=== PATIENT | female | born 1940 | race Caucasian/White ===

== ENCOUNTER 2018-10-27 11:09 | Inpatient (IN) | payer OTHER ==
--- NOTE | 2018-10-27 06:35 | PDHPUP ---
History & Physical Update H&P update statement: This history and physical update is based on an assessment of the patient which was completed after admission or registration (within 24 hours), but prior to the surgery/procedure. H&P update: H&P reviewed & patient examined, no change in patient's condition since H&P completed
[2018-10-27] MEDS ORDERED: GABAPENTIN 300 MG CAP PO ONE (11:30)
[2018-10-27] MEDS ORDERED: ACETAMINOPHEN 500 MG TAB PO ONE (11:30)
[2018-10-27] MEDS ORDERED: ceFAZolin 2 GM/DEXTROSE 100 ML IV ONE (11:30)
[2018-10-27] MEDS ORDERED: LIDOCAINE 1% 2 ML INJ ID PRN (11:32)
[2018-10-27] MEDS ORDERED: LR 1,000 ML IV ONE (11:32)
--- NOTE | 2018-10-27 12:03 | PDANEPAE ---
ANE History of Present Illness cervical stenosis, cervical radiculopathy, spondylosis ANE Past Medical History - Cardiovascular History Hx Hypertension: Yes Hx Arrhythmias: No Hx Chest Pain: No Hx Coronary Artery / Peripheral Vascular Disease: No Hx CHF / Valvular Disease: No Hx Palpitations: No Cardiovascular History Comment: pcp monitors bp medications - Pulmonary History Hx COPD: No Hx Asthma/Reactive Airway Disease: No Hx Recent Upper Respiratory Infection: No Hx Oxygen in Use at Home: No Hx Sleep Apnea: No Sleep Apnea Screening Result - Last Documented: Negative - Neurologic History Hx Cerebrovascular Accident: No Hx Seizures: Yes Hx Dementia: No Neurologic History Comment: hx of seizures, hasn't had in over 20 yrs - Endocrine History Hx Diabetes: No Hypothyroid: No Hyperthyroid: No Obesity: no - Renal History Hx Renal Disorders: Yes Renal History Comment: overactive bladder - Liver History Hx Hepatic Disorders: No - Neurological & Psychiatric Hx Hx Neurological and Psychiatric Disorders: No - Cancer History Hx Cancer: Yes Cancer History Comment: breast ca with bilateral mastectomy and reconstruction. uterine ca with radical hysterectomy - Congenital Disorder History Hx Congenital Disorders: No - GI History Hx Gastrointestinal Disorders: No - Other Health History Other Health History: dentures/ partial plate - Chronic Pain History Chronic Pain: No - Surgical History Prior Surgeries: "a lot of surgeries". bilateral mastectomy with reconstruction. hysterectomy ANE Review of Systems Review of systems is: negative Review of Systems: - Exercise capacity Exercise capacity: >=4 METS METS (RN): 4 METS ANE Patient History - Allergies Allergies/Adverse Reactions: No Known Allergies Allergy (Verified 10/27/18 12:04) - Home Medications Home medications: home medication list seen and reviewed Home Medications: Atenolol [Tenormin 25 mg (*)] 6.25 mg PO DAILY 10/18/18 [Last Taken 10/27/18 09: 00] Calcium Carbonate [Oyster Shell Calcium 500 mg (*)] 500 mg PO BID 10/18/18 [ Last Taken 10/20/18] Citalopram [CeleXA] 10 mg PO DAILY 10/18/18 [Last Taken 10/27/18 09:00] Diclofenac Sodium [Voltaren 75 MG (*)] 75 mg PO BID 10/18/18 [Last Taken 09:00] Estradiol [Estradiol 1 MG (*)] 2 mg PO DAILY 10/18/18 [Last Taken 10/27/18 09:00 ] Gabapentin [Neurontin 100 MG (*)] 100 mg PO DAILY 10/18/18 [Last Taken 10/27/18 09:00] Hydrochlorothiazide [HCTZ (*)] 12.5 mg PO DAILY 10/18/18 [Last Taken 10/27/18 09 :00] Hydrocodone/APAP 5/325 [[place] 5/325 (*)] 1 each PO DAILY PRN 10/18/18 [Last Taken 10/20/18] Losartan Potassium [Cozaar 50 mg (*)] 50 mg PO DAILY 10/18/18 [Last Taken 09:00] Oxybutynin Chloride [Ditropan Xl] 10 mg PO DAILY 10/18/18 [Last Taken 10/27/18 09:00] Potassium Cl [Klor-Con] 10 meq PO DAILY 10/18/18 [Last Taken 10/27/18 09:00] amLODIPine BESYLATE [Norvasc 5 mg (*)] 5 mg PO DAILY 10/18/18 [Last Taken 09:00] - NPO status NPO Status: no food or drink >8 hours - Anes Hx Anes Hx: no prior problems - Smoking Hx Smoking Status: Former smoker - Family Anes Hx Family Hx Anesthesia Complications: none ANE Labs/Vital Signs - Vital Signs Height: 160.02 cm Weight: 56.699 kg ANE Physical Exam - Airway Neck exam: FROM Mallampati Score: Class 2 Mouth exam: dentures - Pulmonary Pulmonary: no respiratory distress, clear to auscultation - Cardiovascular Cardiovascular: regular rate and rhythym - ASA Status ASA Status: II ANE Anesthesia Plan Anesthesia Plan: general endotracheal anesthesia
[2018-10-27] MEDS ORDERED: BUPIVACAINE/EPI 0.25% 30 ML SDV ONE (12:20)
[2018-10-27] MEDS ORDERED: CHLORHEXIDINE GLUC HIBICLENS 118 ML BTL TP ONE (12:20)
[2018-10-27] MEDS ORDERED: THROMBIN (BOVINE) 5,000 UNIT VIAL TP ONE (12:20)
[2018-10-27] MEDS ORDERED: BACITRACIN 50,000 UNITS/10 ML SYR IRR ONE (12:20)
[2018-10-27] MEDS ORDERED: GABAPENTIN 400 MG CAP PO ONE (12:30)
[2018-10-27] MEDS ORDERED: PROPOFOL/EMULSION 500 MG/50 ML BOTTLE IV ONE ×3 (13:26→16:32)
[2018-10-27] MEDS ORDERED: PROPOFOL 200 MG/20 ML VIAL ONE (13:26)
[2018-10-27] MEDS ORDERED: LIDOCAINE 2% 5 ML SDV ONE (13:28)
[2018-10-27] MEDS ORDERED: ROCURONIUM 50 MG/5 ML VIAL ONE (13:28)
[2018-10-27] MEDS ORDERED: HYDROmorphONE/DILAUDID 1 MG/ML INJ IVP PRN ×2 (14:10→15:27)
[2018-10-27] MEDS ORDERED: ONDANSETRON DISINTEGRATING 4 MG TAB PO PRN (14:10)
[2018-10-27] MEDS ORDERED: LACTULOSE 20 GM/30 ML UDCUP PO PRN (14:10)
[2018-10-27] MEDS ORDERED: NALOXONE HCL 0.4 MG/ML INJ IVP PRN ×2 (14:10→15:27)
[2018-10-27] MEDS ORDERED: BISACODYL 10 MG SUPP PR PRN (14:10)
[2018-10-27] MEDS ORDERED: METHOCARBAMOL 750 MG TAB PO PRN (14:10)
[2018-10-27] MEDS ORDERED: MAGNESIUM HYDROXIDE 30 ML UDCUP PO PRN (14:10)
[2018-10-27] MEDS ORDERED: diphenhydrAMINE 25 MG CAP PO PRN (14:10)
[2018-10-27] MEDS ORDERED: ONDANSETRON 4 MG/2 ML VIAL IVP PRN ×2 (14:10→15:27)
[2018-10-27] MEDS ORDERED: morphINE PCA 30 MG/30 ML PCA IV PRN (14:10)
[2018-10-27] MEDS ORDERED: fentaNYL 100 MCG/2 ML INJ ONE ×2 (14:15→17:31)
[2018-10-27] MEDS ORDERED: NS 1,000 ML IV SCH (14:15)
[2018-10-27] MEDS ORDERED: ONDANSETRON 4 MG/2 ML VIAL ONE (14:59)
[2018-10-27] MEDS ORDERED: DEXAMETHASONE 4 MG/ML VIAL ONE ×2 (14:59)
--- NOTE | 2018-10-27 15:20 | PDMN ---
Medical Necessity Medical necessity: Pt meets IP criteria per PA & MCG S-320 Cervical Fusion, Anterior; est los >2 mn s/p C4-C6 ACDF; comorbid advanced age, recurrent cystitis, cervical/breast cancer, pelvic mass & stroke; per H&P & order 10/27/18
[2018-10-27] MEDS ORDERED: METOCLOPRAMIDE 10 MG/2 ML VIAL IVP PRN (15:27)
[2018-10-27] MEDS ORDERED: MEPERIDINE 25 MG/0.5 ML AMP IVP PRN (15:27)
[2018-10-27] MEDS ORDERED: ALBUTEROL 3 ML DEYVIAL IH PRN (15:27)
[2018-10-27] MEDS ORDERED: LR 500 ML IV PRN (15:27)
[2018-10-27] MEDS ORDERED: PROMETHAZINE HCL 25 MG/ML INJ IVP PRN (15:27)
[2018-10-27] MEDS ORDERED: PHENYLEPHRINE HCL 100 MCG/ML SYR IVP PRN (15:27)
[2018-10-27] MEDS ORDERED: LABETALOL HCL 5 MG/ML 20 ML MDV IVP PRN (15:27)
[2018-10-27] MEDS ORDERED: fentaNYL 100 MCG/2 ML INJ IVP PRN (15:27)
[2018-10-27] MEDS ORDERED: DEXAMETHASONE 4 MG/ML VIAL IVP PRN (15:27)
[2018-10-27] MEDS ORDERED: oxyCODONE IR 5 MG TAB PO PRN (15:27)
--- NOTE | 2018-10-27 17:23 | POSTOPPROG ---
Post Op Note Date of Operation: 10/27/18 Surgeon: Maria L Teresa Medical Reception Specialist: MYESHA Frye Anesthesiologist: MD Tremayne Anesthesia: GET(General Endotracheal), Local (Specify) Pre-op Diagnosis: Cervical stenosis C4-C6 Post-op Diagnosis: Cervical stenosis C4-C6 Indication: stenosis/MRI findings Procedure: ACDF C4-C6 Findings: see op report Inf/Abcess present in the surg proc area at time of surgery?: No Depth: Deep Incisional (Fascial) EBL: 100-500 Total fluids administered: see anesthesia record Complications: none Bowel Protocol: Yes Clean Closure Performed: Yes
--- NOTE | 2018-10-27 17:28 | SOAPPROG ---
SOAP Progress Note Assessment/Plan: Post Op Visit: S: Awake and alert, NAD. Pt with expected neck pain O: AFVSS/PERRLA/EOMI no droop CN 2-12 grossly intact +lt touch 5/5 BUE/BLE = CDI Neck soft and supple A/P: 78 yo female that is s/p ACDF C4-C6 -collar at all times -PT/OT/ST ordered -orders in place -post op xrays pending in am -pt seen by Dr Teresa as well -call with any questions or concerns Objective: Vital Signs Temp Pulse Resp BP Pulse Ox 36.8 C 52 L 16 151/72 H 96 10/27/18 14:00 10/27/18 14:00 10/27/18 14:00 10/27/18 14:00 10/27/18 14:00 ICD10 Worksheet Patient Problems: Problems Problem Status Onset Arthrodesis status Acute Cervical spinal stenosis Acute - ICD10 Problem Qualifiers (1) Cervical spinal stenosis (2) Arthrodesis status
--- NOTE | 2018-10-27 17:34 | POSTANESTH ---
Post Anesthetic Evaluation Cardiovascular Status: Normal, Stable Respiratory Status: Normal, Stable Level of Consciousness/Mental Status: Can Participate in Eval Pain Control: Adequate, Prn Tx Ordered Nausea/Vomiting Control: Adequate, Prn Tx Ordered Complications Possibly Related to Anesthesia: None Noted
--- NOTE | 2018-10-27 18:04 | GOP ---
[f rep st] OPERATIVE REPORT DATE OF OPERATION: 10/27/2018 SURGEON: Hadley Teresa MD NEUROSURGEON: Hadley Teresa MD. PIERCING MILL OPERATOR: Andrea Frye PA-C. PREOPERATIVE DIAGNOSIS: Cervical spondylosis with severe cervical disk degenerative disease, C3-4, 4 -5, 5-6 and 6-7; cervical spondylolisthesis, C3-4; right cervical radiculopathy, C4-5, C5-6. POSTOPERATIVE DIAGNOSIS: Cervical spondylosis with severe cervical disk degenerative disease, C3-4, 4-5, 5-6 and 6-7; cervical spondylolisthesis, C3-4; right cervical radiculopathy, C4-5, C5-6. PROCEDURE PERFORMED: Anterior cervical diskectomy with arthrodesis, decompression, C4-5, C5-6 (51028 , 89683); anterior cervical instrumentation, C4, C5, C6 (20124); same-incision bone graft harvest, mi croscope, placement of biomechanical intervertebral device, C4-5, C5-6 (03886 x2). FINDINGS: ESTIMATED BLOOD LOSS: 200 mL. INDICATIONS: The patient is an 78-year-old with pain radiating down the right arm to the right shoul victor m and MRI demonstrated severe cervical degenerative disease at C3-4, 5-5, 5-6, 6-7. She had nerve compression on the right at C4-5, 5-6. She had a spondylolisthesis at C3-4, but no significant alix inal stenosis or nothing in my view that was causing symptoms. She also had severe degenerative rodriguez ges at C6-7, but I did not think this level was symptomatic. I suggested a 2 level ACDF. Her MRI wa s done last December. I had seen her in May, and then we preop'd her this past month, and upon revi crawley her films, she had no change in her symptoms, but because the MRI was so old, we actually had h er set up to get a preop MRI today prior to surgery and she declined this. She did not really want t o go sit in the tube while waiting for surgery. She understood there is a slight chance there could be a change in her MRI findings compared to last December, but she wanted to accept this risk. Her clini mayito symptoms were the same and she was ready to proceed. I thought the likelihood of there being a c hange is low and this is why we set up the MRI for the same day here at the hospital, but again, she refused it. The risk of esophageal injury, carotid injury, recurrent laryngeal nerve injury, pseudoa rthrosis, adjacent segment disease, future spine surgery, particularly at the C3-4 level or posterior stabilization procedure was discussed. She knew there was risk of hoarseness, dysphagia and possibl y continued symptoms, and she did want to proceed despite these risks. DESCRIPTION OF PROCEDURE: The patient was taken to the operating room and placed in a supine positio n. General anesthesia was begun. A midline shoulder roll was placed. Her head was kept in neutral occiput and gently extended. She was sterilely prepped and draped in the usual fashion. We made a t ransverse incision on the left side of the neck. The subcutaneous tissue was dissected using Bovie c autery down through the platysma. We used a combination of sharp and blunt dissection medial to the sternocleidomastoid and lateral to the strap muscles down the prevertebral space. The dissection was very straightforward. We shot a localizing x-ray, dissected the longus colli muscles off the spine at C4-5, 5-6. There was very large ventral osteophyte at C3-4. This was left alone. We removed the large osteophytes at C4-5, 5-6, placed a self-retaining retractor, put distraction pins at C4-5 and distracted there. Under the microscope, we removed the C4-5 disk and the cartilaginous endplates. W e opened the posterior and longitudinal ligament and decompressed the neural foramen on each side. T here was very severe foraminal stenosis on the right, more so than the left, but both sides were sten otic. She had a lot of epidural venous bleeding over the top of her nerve root sheaths bilaterally. This was controlled with a small piece of Gelfoam, but there was blood loss during the procedure. H ere we chose a 7 mm x 16 x 14 mm implant. It was packed bone autograft and inserted with good fit at C4-5. We then went to C5-6, where we did likewise, distracted, drilled the disk away, as well as th e cartilaginous endplates. We drilled and harvested subchondral bone. We opened the PLL, decompress ed the neural foramen on each side and here too we chose a 7 x 16 x 14 mm device that was packed with bone autograft and inserted. We got x-rays at C4-5, 5-6 and the 7 x 16 x 14 mm devices completely f illed the disk space. There was no retropulsion of material into the spinal canal, but interestingly , these had created really dramatic lordosis at the levels of interest, which is typically our goal. She had very significant lordosis at 4-5, 5-6 and I was very happy with the way those levels looked, but it had worsened the appearance of the C3-4 level and driven the C4 vertebral body posteriorly re lative to C3. This is an unusual finding. It seemed like there was greater kyphosis and spondylolis thesis at C3-4 as a result of this. I removed the implants altogether and shot a new x-ray and thing s looked much better back to the preop baseline at C3-4. I, therefore, elected to put a smaller impl ant in because I did not want to create too much lordosis at the surgical levels at the expense of a nonsurgical level. I switched these out and chose a 5 x 14 x 11 mm device at C4-5 and a 6 x 14 x 11 mm device at C5-6. There was nice fit of these devices in the disk space at those levels. We placed some additional bone autograft down around them and shot an x-ray and I was happy with the position in the spine. We chose a 31 mm plate, placed a single screw at C4, single screw at C6. They were al l 13 mm screws, and placed the remaining for a total of 6 screws and they were all locked according t o company specification. We then achieved meticulous hemostasis, irrigated with antibiotic saline so lution and then placed a little Marcaine with epinephrine in the wound. We then closed the incision in multiple layers using Vicryl sutures. Steri-Strips were applied to the skin. The patient was rev ersed from anesthesia, extubated and transferred to the recovery room in stable condition. There wer e no . COMPLICATIONS: None. INSTRUMENTATION USED: A [employer] 31 mm plate. We actually used dual anatomic PTC implants at both levels. We discarded the larger implants. We had a 7 x 16 x 14 mm and a 7 x 16 x 14 mm initially. These were discarded due to the patient's anatomy. We then used a final implant at C4-5, was a 5 x 1 4 x 11; at C5-6, we used a 6 x 14 x 11; and we used a 31 mm Zevo plate with 6 screws. They were all locked according to company specification. /[id number]/MODL
[2018-10-27] MEDS: ACETAMINOPHEN 500 MG TAB PO SCH (21:20)
[2018-10-27] MEDS: GABAPENTIN 300 MG CAP PO SCH (21:21)
[2018-10-27] MEDS: HYDROCODONE/APAP 5/325 TAB PO PRN (21:21)
[2018-10-27] MEDS: FAMOTIDINE 20 MG TAB PO SCH (21:21)
[2018-10-27] MEDS: SENNOSIDES/DOCUSATE SODIUM TAB PO SCH (21:21)
[2018-10-27] MEDS: amLODIPine BESYLATE 5 MG TAB PO SCH (23:05)
[2018-10-27] MEDS: ATENOLOL 25 MG TAB PO SCH (23:05)
[2018-10-27] MEDS: CITALOPRAM 20 MG TAB PO SCH (23:06)
[2018-10-27] MEDS: ESTRADIOL 1 MG TAB PO SCH (23:06)
[2018-10-27] MEDS: GABAPENTIN 100 MG CAP PO SCH (23:06)
[2018-10-27] MEDS: LOSARTAN POTASSIUM 50 MG TAB PO SCH (23:06)
[2018-10-27] MEDS: HYDROCHLOROTHIAZIDE 12.5 MG CAP PO SCH (23:06)
[2018-10-27] MEDS: POTASSIUM CL 10 MEQ TAB PO SCH (23:07)
[2018-10-27] MEDS: OXYBUTYNIN 5 MG EXT REL TAB PO SCH (23:07)
[2018-10-27] MEDS: ceFAZolin 2 GM/DEXTROSE 100 ML IV SCH (23:53)
[2018-10-28 05:17] LABS: PLATELET COUNT 236 10^3/uL (150-400)
[2018-10-28] MEDS: ceFAZolin 2 GM/DEXTROSE 100 ML IV SCH (06:40)
[2018-10-28] MEDS: GABAPENTIN 300 MG CAP PO SCH ×3 (06:40→21:13)
[2018-10-28] MEDS: HYDROCODONE/APAP 5/325 TAB PO PRN (06:46)
--- NOTE | 2018-10-28 07:51 | NEUSURGPN ---
Date of Surgery: 10/27/18 Post Op Day: 1 Assessment/Plan: Assessment: 78 yo female that is s/p ACDF C4-C6 POD #1 Plan: -s/p ACDF C4-C6: doing well this am with some expected neck pain -collar at all times -PT/OT/ST pending -orders in place -post op xrays pending this am -will trial tramdol -pt seen by Dr Teresa as well -call with any questions or concerns -pt understands and agrees Subjective: Awake and alert. Pt with some expected neck pain. No melo/cp/sob/abd or gu complaints. No f/c/n/v/d. Objective: AFVSS/PERRLA/EOMI no droop CN 2-12 grossly intact +lt touch 5/5 BUE/BLE = CDI Neck soft and supple Neuro Check Frequency: per routine Urinary Catheter in Place: No - Physician Discussed Patient with : Malick Patient Seen by : Malick Neurosurgery Physical Exam - Vitals, I&O, Labs I and O 10/27/18 10/28/18 10/29/18 05:59 05:59 05:59 Intake Total 850 Output Total 950 Balance -100 Weight 56.699 kg Intake: Oral (ml) 100 IV Intake (ml) 750 Output: Urine (ml) 950 Bedside Commode 950 Other: Output Comment Bedside Commode little output/toilet paper in commode/unable to measure Number of Voids Bedside Commode 1 Vital Signs Temp Pulse Resp BP Pulse Ox 37.1 C 55 L 18 140/76 H 92 10/28/18 04:41 10/28/18 04:41 10/28/18 04:41 10/28/18 04:41 10/28/18 04:41 Laboratory Results 10/28/18 04:23 10/28/18 04:23 ICD10 Worksheet Patient Problems: Problems Problem Status Onset Arthrodesis status Acute Cervical spinal stenosis Acute - ICD10 Problem Qualifiers (1) Cervical spinal stenosis (2) Arthrodesis status
[2018-10-28] MEDS: ACETAMINOPHEN 500 MG TAB PO SCH ×3 (08:14→22:54)
[2018-10-28] MEDS: POLYETHYLENE GLYCOL 3350 17 GM PKT PO PRN (08:14)
[2018-10-28] MEDS: ESTRADIOL 1 MG TAB PO SCH (08:15)
[2018-10-28] MEDS: amLODIPine BESYLATE 5 MG TAB PO SCH (08:15)
[2018-10-28] MEDS: SENNOSIDES/DOCUSATE SODIUM TAB PO SCH ×2 (08:17→21:13)
[2018-10-28] MEDS: OXYBUTYNIN 5 MG EXT REL TAB PO SCH (08:17)
[2018-10-28] MEDS: GABAPENTIN 100 MG CAP PO SCH (08:17)
[2018-10-28] MEDS: ATENOLOL 25 MG TAB PO SCH (08:20)
[2018-10-28] MEDS: FAMOTIDINE 20 MG TAB PO SCH ×2 (08:22→21:13)
[2018-10-28] MEDS: HYDROCHLOROTHIAZIDE 12.5 MG CAP PO SCH (08:22)
[2018-10-28] MEDS: LOSARTAN POTASSIUM 50 MG TAB PO SCH (08:23)
[2018-10-28] MEDS: POTASSIUM CL 10 MEQ TAB PO SCH (08:24)
[2018-10-28] MEDS: CITALOPRAM 20 MG TAB PO SCH (08:26)
[2018-10-28] MEDS: traMADol 50 MG TAB PO PRN ×3 (09:27→22:54)
--- NOTE | 2018-10-28 14:47 | ASMTCMCOM ---
CM Note CM Note Notes: Pt had planned ACDF C4-C6, resides with spouse and teen dghtr. Prior to surgery pt was pre-arranged with [facility]. [employer] rec home, PT/OT rec home care. Pt does want home care is agreeable to [facility]. No home care ordered will be required since [facility] has protocol with MD. Funez with [facility] to visit on-site with pt. D/c plan of care: Home with [facility] PT/OT Date Signed: 10/28/2018 02:47 PM Electronically Signed By:BERTA Berkowitz
[2018-10-29] MEDS: POLYETHYLENE GLYCOL 3350 17 GM PKT PO PRN (05:11)
[2018-10-29] MEDS: GABAPENTIN 300 MG CAP PO SCH (05:11)
[2018-10-29] MEDS: traMADol 50 MG TAB PO PRN ×2 (05:21→14:46)
[2018-10-29] MEDS: ACETAMINOPHEN 500 MG TAB PO SCH ×3 (05:28→21:47)
--- NOTE | 2018-10-29 08:12 | SOAPPROG ---
SOAP Progress Note Assessment/Plan: Assessment: 78 yo female that is s/p ACDF C4-C6 POD #2 s/p ACDF C4-C6: doing well this am with some expected neck pain and painful swallowing Plan: -Consider DC home today if cleared by therapies. -collar at all times. Current collar appears too large and needs to be refitted with a smaller collar. -PT/OT/ST -call with any questions or concerns Subjective: Awake and alert. Pt with some expected neck pain. Swallowing is painful, but she is getting food down. Objective: AFVSS/PERRLA/EOMI no droop CN 2-12 grossly intact +lt touch 5/5 BUE/BLE = CDI Neck soft and supple Post op xrays show good position of hardware 10/29/18 08:12 Objective: Vital Signs Temp Pulse Resp BP Pulse Ox 36.8 C 49 L 16 127/61 H 96 10/29/18 07:55 10/29/18 07:55 10/29/18 07:55 10/29/18 07:55 10/29/18 07:55 Laboratory Results 10/28/18 04:23 10/28/18 04:23 10/28/18 10/29/18 10/30/18 05:59 05:59 05:59 Intake Total 850 2040 Output Total 950 1450 Balance -100 590 ICD10 Worksheet Patient Problems: Problems Problem Status Onset Arthrodesis status Acute Cervical spinal stenosis Acute
[2018-10-29] MEDS: amLODIPine BESYLATE 5 MG TAB PO SCH ×2 (08:48→12:45)
[2018-10-29] MEDS: SENNOSIDES/DOCUSATE SODIUM TAB PO SCH ×2 (08:48→21:49)
[2018-10-29] MEDS: CITALOPRAM 20 MG TAB PO SCH (08:49)
[2018-10-29] MEDS: POTASSIUM CL 10 MEQ TAB PO SCH (08:49)
[2018-10-29] MEDS: ESTRADIOL 1 MG TAB PO SCH (08:49)
[2018-10-29] MEDS: OXYBUTYNIN 5 MG EXT REL TAB PO SCH (08:49)
[2018-10-29] MEDS: HYDROCHLOROTHIAZIDE 12.5 MG CAP PO SCH (08:49)
[2018-10-29] MEDS: LOSARTAN POTASSIUM 50 MG TAB PO SCH (08:50)
[2018-10-29] MEDS: FAMOTIDINE 20 MG TAB PO SCH ×2 (08:50→21:49)
[2018-10-29] MEDS: ATENOLOL 25 MG TAB PO SCH (12:45)
[2018-10-29] MEDS: GABAPENTIN 100 MG CAP PO SCH (12:46)
[2018-10-29] MEDS ORDERED: NS 500 ML IV ONE (19:00)
[2018-10-30] MEDS: ACETAMINOPHEN 500 MG TAB PO SCH ×3 (05:44→22:46)
[2018-10-30] MEDS: GABAPENTIN 300 MG CAP PO SCH (05:46)
--- NOTE | 2018-10-30 08:16 | SOAPPROG ---
SOAP Progress Note Assessment/Plan: Assessment: 78 yo female that is s/p ACDF C4-C6 POD #3 s/p ACDF C4-C6: doing well this am with some expected neck pain and painful swallowing. Had vasovagal yesterday with low BP. Improved with fluids and doing well today. Plan: -Her cannot be with her at home today. She may DC tmrw. -DC planning -collar at all times. -PT/OT/ST -call with any questions or concerns Subjective: Awake and alert. Pt with some expected neck pain. Swallowing is painful, but she is getting food down. Objective: AFVSS/PERRLA/EOMI no droop CN 2-12 grossly intact +lt touch 5/5 BUE/BLE = CDI Neck soft and supple Objective: Vital Signs Temp Pulse Resp BP Pulse Ox 36.4 C 54 L 16 149/65 H 94 10/30/18 08:00 10/30/18 08:00 10/30/18 08:00 10/30/18 08:00 10/30/18 08:00 Laboratory Results 10/28/18 04:23 10/28/18 04:23 10/29/18 10/30/18 10/31/18 05:59 05:59 05:59 Intake Total 2040 500 Output Total 1450 Balance 590 500 ICD10 Worksheet Patient Problems: Problems Problem Status Onset Arthrodesis status Acute Cervical spinal stenosis Acute
[2018-10-30] MEDS: SENNOSIDES/DOCUSATE SODIUM TAB PO SCH ×2 (09:57→20:02)
[2018-10-30] MEDS: ESTRADIOL 1 MG TAB PO SCH (09:57)
[2018-10-30] MEDS: HYDROCHLOROTHIAZIDE 12.5 MG CAP PO SCH (09:57)
[2018-10-30] MEDS: OXYBUTYNIN 5 MG EXT REL TAB PO SCH (09:57)
[2018-10-30] MEDS: ATENOLOL 25 MG TAB PO SCH (09:58)
[2018-10-30] MEDS: POTASSIUM CL 10 MEQ TAB PO SCH (09:58)
[2018-10-30] MEDS: CITALOPRAM 20 MG TAB PO SCH (09:58)
[2018-10-30] MEDS: ENOXAPARIN 40 MG/0.4 ML SYR SC SCH (09:59)
[2018-10-30] MEDS: LOSARTAN POTASSIUM 50 MG TAB PO SCH (09:59)
[2018-10-30] MEDS: amLODIPine BESYLATE 5 MG TAB PO SCH (09:59)
[2018-10-30] MEDS: FAMOTIDINE 20 MG TAB PO SCH ×2 (09:59→20:58)
[2018-10-30] MEDS: traMADol 50 MG TAB PO PRN ×2 (10:05→20:58)
[2018-10-31] MEDS: traMADol 50 MG TAB PO PRN ×3 (06:06→21:44)
[2018-10-31] MEDS: ACETAMINOPHEN 500 MG TAB PO SCH ×3 (06:06→22:54)
--- NOTE | 2018-10-31 07:56 | SOAPPROG ---
SOAP Progress Note Assessment/Plan: Assessment: 78 yo female that is s/p ACDF C4-C6 POD #4 s/p ACDF C4-C6: doing well this am ongoing painful swallowing. No new issues Plan: -Her cannot be with her at home today. She may DC tmrw. -DC planning -collar at all times. -PT/OT/ST -Advance diet -call with any questions or concerns Subjective: Awake and alert. doing well, but states her son yesterday in [place]. Objective: AFVSS/PERRLA/EOMI no droop CN 2-12 grossly intact +lt touch 5/5 BUE/BLE = CDI Neck soft and supple 10/31/18 07:55 Objective: Vital Signs Temp Pulse Resp BP Pulse Ox 36.8 C 94 16 123/67 H 95 10/31/18 00:00 10/31/18 00:00 10/31/18 00:00 10/31/18 00:00 10/31/18 00:00 Laboratory Results 10/28/18 04:23 10/28/18 04:23 10/30/18 10/31/18 11/01/18 05:59 05:59 05:59 Intake Total 500 250 Output Total 450 Balance 500 -200 ICD10 Worksheet Patient Problems: Problems Problem Status Onset Arthrodesis status Acute Cervical spinal stenosis Acute
[2018-10-31] MEDS: CITALOPRAM 20 MG TAB PO SCH (09:27)
[2018-10-31] MEDS: amLODIPine BESYLATE 5 MG TAB PO SCH (09:27)
[2018-10-31] MEDS: FAMOTIDINE 20 MG TAB PO SCH (09:29)
[2018-10-31] MEDS: ATENOLOL 25 MG TAB PO SCH (09:29)
[2018-10-31] MEDS: HYDROCHLOROTHIAZIDE 12.5 MG CAP PO SCH (09:29)
[2018-10-31] MEDS: GABAPENTIN 100 MG CAP PO SCH (09:29)
[2018-10-31] MEDS: LOSARTAN POTASSIUM 50 MG TAB PO SCH (09:30)
[2018-10-31] MEDS: POTASSIUM CL 10 MEQ TAB PO SCH (09:44)
[2018-10-31] MEDS: OXYBUTYNIN 5 MG EXT REL TAB PO SCH (09:44)
[2018-10-31] MEDS: SENNOSIDES/DOCUSATE SODIUM TAB PO SCH ×2 (09:44→21:47)
[2018-10-31] MEDS: ENOXAPARIN 40 MG/0.4 ML SYR SC SCH (09:48)
[2018-10-31] MEDS: ESTRADIOL 1 MG TAB PO SCH (09:58)
[2018-10-31] MEDS: HYDROCODONE/APAP 5/325 TAB PO PRN (18:09)
--- NOTE | 2018-10-31 18:55 | ASMTCMCOM ---
CM Note CM Note Notes: Spoke with ANKIT Olea. Per Emmie, pt's discharge placed on hold secondary to cognitive issues, family issues and concerns about a safe discharge plan. Pt's son Vikram, who resides in [place], was placed on hospice care overnight. Pt's son's decline was sudden and expected. Pt's to fly to [place] for support family and to assist with possible arrangements Per Emmie, pt demonstrating compliance concerns (regularly removing collar despite verbal cues and reminders). PT/OT re-evaluated and recommend SNF placement. Per Emmie, pt open to SNF given current lack of home support. Pt has an adopted 17 year old dghtr, who has finals this week and will be unable to assist. Pt's son mid-day. at bedside providing pt support. Mehreen Archerin to bedside. Pt unable to discuss SNF placement at this time due to emotional strain. CM will follow up with pt on Thursday11/01/18. Discharge Plan: SNF - facility TBD Date Signed: 10/31/2018 06:54 PM Electronically Signed By:Kayla Champion RN
[2018-10-31] MEDS ORDERED: FAMOTIDINE 20 MG TAB PO SCH (21:00)
[2018-10-31] MEDS: POLYETHYLENE GLYCOL 3350 17 GM PKT PO PRN (21:48)
[2018-11-01] MEDS: ACETAMINOPHEN 500 MG TAB PO SCH (06:01)
[2018-11-01] MEDS: ESTRADIOL 1 MG TAB PO SCH (09:12)
[2018-11-01] MEDS: ENOXAPARIN 40 MG/0.4 ML SYR SC SCH (09:13)
[2018-11-01] MEDS: amLODIPine BESYLATE 5 MG TAB PO SCH (09:13)
[2018-11-01] MEDS: SENNOSIDES/DOCUSATE SODIUM TAB PO SCH (09:13)
[2018-11-01] MEDS: CITALOPRAM 20 MG TAB PO SCH (09:14)
[2018-11-01] MEDS: POTASSIUM CL 10 MEQ TAB PO SCH (09:14)
[2018-11-01] MEDS: LOSARTAN POTASSIUM 50 MG TAB PO SCH (09:14)
[2018-11-01] MEDS: OXYBUTYNIN 5 MG EXT REL TAB PO SCH (09:15)
[2018-11-01] MEDS: HYDROCHLOROTHIAZIDE 12.5 MG CAP PO SCH (09:15)
[2018-11-01] MEDS: ATENOLOL 25 MG TAB PO SCH (09:15)
[2018-11-01] MEDS: GABAPENTIN 100 MG CAP PO SCH (09:17)
--- NOTE | 2018-11-01 11:06 | NEUSURGPN ---
Date of Surgery: 10/27/18 Post Op Day: 5 Assessment/Plan: Assessment: 78 yo female that is s/p ACDF C4-C6 POD #5 Plan: -Ok to discharge to SNF today -collar at all times -PT/OT/ST -Pain controlled -Discussed with patient and , they agree with the plan Discussed patient with Dr Teresa Subjective: Expected neck pain, denies any swallowing trouble Objective: AxO x4 MAEx4 5/5 BUE, BLE Collar in place Dressing CDI Neuro Check Frequency: per routine Urinary Catheter in Place: No - Physician Discussed Patient with : Malick Neurosurgery Physical Exam - Vitals, I&O, Labs I and O 10/31/18 11/01/18 11/02/18 05:59 05:59 05:59 Intake Total 250 550 300 Output Total 450 Balance -200 550 300 Intake: Oral (ml) 250 550 300 Output: Urine (ml) 450 Toilet 450 Other: Intake Quantity Yes Sufficient Number of Voids Toilet 3 2 1 Number of Stools Toilet 1 Vital Signs Temp Pulse Resp BP Pulse Ox 36.6 C 62 16 165/94 H 92 11/01/18 07:55 11/01/18 09:15 11/01/18 07:55 11/01/18 09:15 11/01/18 07:55 Laboratory Results 10/28/18 04:23 10/28/18 04:23 ICD10 Worksheet Patient Problems: Problems Problem Status Onset Arthrodesis status Acute Cervical spinal stenosis Acute
--- NOTE | 2018-11-01 11:12 | PDIAF ---
- Diagnosis Diagnosis: S/P ACDF Code Status: Full Code - Medication Management Discharge Medications: electronically signed and located in the Home Medication List. PICC Care - Routine: N/A - Orders Services needed: Home Care, Registered Nurse, Physical Therapy, Occupational Therapy Home Care Face to Face: I certify that this patient was under my care and that I had the required [id number] encounter meeting the encounter requirements on the discharge day. My findings support the fact that the patient is homebound as defined in Home Care Face to Face Continued: CMS Chapter 7 Medicare Benefits Manual 30.1.1 , The condition of the patient is such that there exists a normal inability to leave home and consequently, leaving home would require a considerable and taxing effort. Diet Recommendation: no restrictions on diet, other Diet Texture: Regular Texture Diet, Thin Liquids, Meds Whole w/Liquids, Meds Whole in Puree, Meds Crushed in Puree Additional Instructions: Wear hard collar at all times Call [phone] with questions/concerns and to confirm post op appt Follow post op instructions provided. - Follow Up Care Current Providers and Referrals: KODY GORE [Other] Maria L Teresa MD [Medical Doctor] - follow up in 2 weeks
[2018-11-01 11:13] VITALS: BP 164/76
--- NOTE | 2018-11-01 11:46 | ASMTLACE ---
LACE Length of stay for Answers: 4-6 days current admission Acuity / Level of Answers: Yes Care: Did the patient have an inpatient admission? Comorbidities - select Answers: Other Notes: HTN; Hx of breast cance r all that apply # of Emergency department Answers: 0 visits in the last 6 months Score: 8 Date Signed: 11/01/2018 11:45 AM Electronically Signed By:EMILY Sharma
--- NOTE | 2018-11-01 12:02 | ASDISCHSUM ---
Discharge Information Plan Status:Home with Home Health Medically Cleared to Leave:11/01/2018 Discharge Date:11/01/2018 11:49 AM CM D/C Disposition:Assisted Facility [facility] D[facility]C [facility] Projected Discharge Date:11/01/2018 11:00 AM Transportation at D/C: Discharge Delay Reason: Follow-Up Date:11/01/2018 11:00 AM Discharge Slot: Final Diagnosis: Placement Information Referral Type:*Home Health Care Services Referral ID:[id number] Provider Name:[facility] ([facility]) Address 1:[address] Address 2:[place] [address] City:[place] Selection Factors: State:[place] Patient Contact Information Contact Name:GUMARO Relationship: Address:[address] Work Phone: City:[place] Alternate Phone: [facility]/Zip Code:[place] [address] Email: Financial Information Financial Class:Medicare Primary Plan Desc:MEDICARE INPATIENT Primary Plan Number:[id number] Secondary Plan Desc:[facility] Secondary Plan Number:[id number] Assessment Information LACE LACE Length of stay for Answers: 4-6 days current admission Acuity / Level of Answers: Yes Care: Did the patient have an inpatient admission? Comorbidities - select Answers: Other Notes: HTN; Hx of breast cance r all that apply # of Emergency department Answers: 0 visits in the last 6 months Score: 8 Date Signed: 11/01/2018 11:45 AM Electronically Signed By:EMILY Sharma [facility] CM Progress Note CM Note CM Note Notes: Pt had planned ACDF C4-C6, resides with spouse and teen dghtr. Prior to surgery pt was pre-arranged with [facility]. [facility] rec home, PT/OT rec home care. Pt does want home care is agreeable to [facility]. No home care ordered will be required since [facility] has protocol with MD. Funez with [facility] to visit on-site with pt. D/c plan of care: Home with [facility] PT/OT Date Signed: 10/28/2018 02:47 PM Electronically Signed By:BERTA Berkowitz [facility] Progress Note CM Note CM Note Notes: Spoke with ANKIT Olea. Per Emmie, pt's discharge placed on hold secondary to cognitive issues, family issues and concerns about a safe discharge plan. Pt's son Vikram, who resides in [place], was placed on hospice care overnight. Pt's son's decline was sudden and expected. Pt's to fly to [place] for support family and to assist with possible arrangements Per Emmie, pt demonstrating compliance concerns (regularly removing collar despite verbal cues and reminders). PT/OT re-evaluated and recommend SNF placement. Per Emmie, pt open to SNF given current lack of home support. Pt has an adopted 17 year old dghtr, who has finals this week and will be unable to assist. Pt's son mid-day. at bedside providing pt support. Carmen Archerlain to bedside. Pt unable to discuss SNF placement at this time due to emotional strain. CM will follow up with pt on Thursday11/01/18. Discharge Plan: SNF - facility TBD Date Signed: 10/31/2018 06:54 PM Electronically Signed By:Kayla Champion RN Case Management Discharge Plan Note Case Management Discharge Discharge Order Complete? Answers: Yes Patient to Obtain Answers: via Family Medications Transportation Arranged Answers: Family/Friends EMTALA Complete Answers: No Case Management Transport Answers: No Form Complete Faxed Final Orders Answers: Yes Agency/Facility Transfer Answers: Yes Report Printed & Faxed to Receiving Agency Family Notified Answers: No Discharge Comments Notes: Pts case discussed w/ ANKIT Burris and DYLAN Malagon. Pt is being d/c'd today. Pts is back from [place] and reports that he will be available 05/01 to be w/ her. Pt would like to d/c home w/ [facility]. CM notified Dee Dee at [facility] of the d/c and sent her updates. Dee Dee will get orders through protocols. CM available for changes. Plan: [facility]; ARIANNE RAGSDALE RN Intervention Information Intervention Type:*IM-Signed Date of Service:10/29/2018 10:05 AM Patient Type:Inpatient Staff Member:Radha Garcia Hours: Discipline: Severity: Comment:
== END 2018-11-01 11:49 | disposition home health service (06) | DRG 473 ==
LOC: F3N 11:09
PROVIDERS: ADMIT Neurological Surgery; ATTEND Neurological Surgery
DX: M47.22 Other spondylosis with radiculopathy, cervical region (principal); M50.121 Cervical disc disorder at C4-C5 level with radiculopathy; M43.12 Spondylolisthesis, cervical region; I10 Essential (primary) hypertension; Z85.3 Personal history of malignant neoplasm of breast; Z90.13 Acquired absence of bilateral breasts and nipples; Z85.41 Personal history of malignant neoplasm of cervix uteri; Z87.891 Personal history of nicotine dependence; Z86.73 Personal history of transient ischemic attack (TIA), and cerebral infarction without residual deficits
CPT/HCPCS: 92526-GN; 92610-GN; 97116-GP; 97161-GP; 97166-GO; 97530-GO; 97530-GP; 97535-GO; C1713; J0690; J1100; J1650; J2405; J2704; J3010